=== PATIENT | female | born 1965 ===

== ENCOUNTER 2020-01-26 06:21 | Day surgery (SDC) | payer OTHER ==
[~2020-01-26 06:21] MED LIST: CALCIUM500 M2 PO; MULTIVITAMINS1 EAC9 PO; OSTERA TABLET1 EACH PO
== END 2020-01-26 17:40 | disposition home or self-care (01) ==
LOC: CIR.AMB 06:21 → ADM 11:15 → CIR.AMB 17:40
DX: K64.8 Other hemorrhoids (principal); K64.4 Residual hemorrhoidal skin tags